=== PATIENT | female | born 1975 | race African-American/Black ===

== ENCOUNTER 2017-07-31 08:17 | Emergency (ER) | payer OTHER ==
[~2017-07-31] VITALS: Ht 167.6 cm; Wt 106.8 kg
[2017-07-31 10:10] VITALS: BP 177/114
== END 2017-07-31 10:10 | disposition home or self-care (01) ==
LOC: ED 08:17
DX: K04.7 Periapical abscess without sinus (principal); H60.91 Unspecified otitis externa, right ear; Z90.89 Acquired absence of other organs
CPT/HCPCS: J0561